=== PATIENT | male | born 1980 | race Caucasian/White ===

== ENCOUNTER 2023-09-07 22:26 | Inpatient (IN) | payer BC ==
[2023-09-07 23:54] LABS: #Eosinphils 0.1 10x3/uL (0.0-0.5); #Monocytes 0.9 10x3/uL (0.0-1.1); #Neutrophils 7.5 10x3/uL (1.5-8.4); %Basophils 0.4 % (0.0-2.0); %Eosinophils 1.1 % (0.0-6.0); %Lymphocytes 8.4 % (18.0-47.0); %Monocytes 9.6 % (0.0-10.0); %Neutrophils 80.1 % (40.0-75.0); Hematocrit 29.5 % (38.8-50.0); Hemoglobin 9.4 g/dL (13.5-17.5); Mean Corpuscular HGB CONC 31.9 g/dL (32.0-36.0); Mean Corpuscular Volume 87.8 fl (81.2-95.1); Mean Platelet Volume 9.7 fl (7.4-10.4); Platelet Count 245 10x3/uL (150-450); RBC Distribution Width 15.9 % (11.5-14.5); Red Blood Cell (RBC) Count 3.36 10x6/uL (4.32-5.72); White Blood Cell (WBC) Count 9.3 10x3/uL (3.5-10.5)
[2023-09-08 00:05] LABS: ALT (SGPT) 11 U/L (8-55); AST (SGOT) 15 U/L (5-34); Albumin 3.1 g/dL (3.5-5.0); Alkaline Phosphatase 75 U/L (40-110); Anion Gap 20 mmol/L (10-20); BUN (Urea Nitrogen) 36 mg/dL (8.9-20.6); Bilirubin, Total 0.5 mg/dL (0.2-1.2); Calc. Creatinine Clearance 0 mL/min (70-130); Calcium 7.7 mg/dL (7.8-10.44); Carbon Dioxide 25 mmol/L (22-29); Chloride 101 mmol/L (98-107); Estimated GFR 14; Globulin 2.9 g/dL (2.4-3.5); Glucose 92 mg/dL (70-105); Lipase 74 U/L (8-78); Potassium 4.5 mmol/L (3.5-5.1); Sodium 141 mmol/L (136-145)
[2023-09-08] MEDS ORDERED: Ipratropium/Albuterol 3 ML NEB ONE (00:05)
[2023-09-08 00:11] LABS: Troponin I 0.157 ng/mL (< 0.028)
[2023-09-08] MEDS ORDERED: cefTRIAXone (ROCEPHIN) 1 GM VIAL ONE (01:16)
[2023-09-08] MEDS ORDERED: Aspirin Chewable 81 MG TAB ONE (01:16)
[2023-09-08] MEDS ORDERED: Aspirin 325 MG TAB ONE (01:20)
[2023-09-08] MEDS ORDERED: Morphine 4 MG/ML VIAL ONE (01:23)
[2023-09-08] MEDS ORDERED: Ondansetron PF 4 MG/2 ML Vial ONE (01:33)
[2023-09-08] MEDS ORDERED: Furosemide 40 MG/4 ML VIAL ONE (01:34)
[2023-09-08] MEDS ORDERED: Nitroglycerin 2% Ointment 1 INCH/1 GM Packet ONE (02:02)
[2023-09-08] MEDS ORDERED: Azithromycin 500 MG VIAL ONE (02:03)
[2023-09-08] MEDS ORDERED: Calcium Carbonate 500 MG ChewTAB PO PRN (03:06)
[2023-09-08] MEDS ORDERED: Senokot S 8.6-50 MG TAB PO PRN (03:06)
[2023-09-08] MEDS ORDERED: Acetaminophen 325 MG TAB PO PRN (03:06)
[2023-09-08] MEDS ORDERED: Vancomycin Diaylsis Sliding Scale (Wt 71-99) FS SCH (04:15)
[2023-09-08] MEDS ORDERED: VANCOMYCIN 1.75 GM/350 ML BAG 1.75 GM in Premix 1 BAG IVPB SCH (04:15)
[2023-09-08] MEDS: Guaifenesin DM 100-10/5 ML UDCUP PO PRN (04:25)
[2023-09-08] MEDS: Cefepime 1 GM in Sodium Chloride 0.9% 100 ML IVPB SCH (04:26)
[2023-09-08] MEDS ORDERED: cloNIDine 0.1 MG TAB PO SCH (09:00)
[2023-09-08 09:07] LABS: SARS-CoV-2 NAA Rapid Test Not Detected (NotDetected)
[2023-09-08] MEDS ORDERED: Carvedilol 6.25 MG TAB PO SCH (09:30)
[2023-09-08] MEDS: Labetalol HCl 100 MG TAB PO SCH ×3 (09:31→21:03)
[2023-09-08] MEDS: Lisinopril 10 MG TAB PO SCH (09:31)
[2023-09-08] MEDS: Benzonatate 100 MG CAP PO SCH ×3 (09:31→21:02)
[2023-09-08] MEDS: Heparin 5,000 UNITS/ML VIAL SC SCH ×3 (09:32→21:04)
[2023-09-08] MEDS: Aspirin 81 mg Enteric Coated Tablet PO SCH (09:32)
[2023-09-08] MEDS: Amlodipine 10 MG TAB PO SCH (09:32)
[2023-09-08] MEDS: Folic Acid/Vit B Comp W-C PO SCH (09:33)
[2023-09-08] MEDS: cloNIDine 0.1 MG TAB PO SCH ×2 (15:00→21:02)
[2023-09-08 16:46] LABS: HBSAg Index 0.19 S/CO (0-0.99); Hep B Surf Ag Non-Reactive S/CO (NonReactive)
[2023-09-08] MEDS: Carvedilol 6.25 MG TAB PO SCH (19:12)
[2023-09-08] MEDS: Acetaminophen/Codeine 30-300mg Tablet PO PRN (21:03)
[2023-09-09 01:06] LABS: Hep B Core Total Ab Non-Reactive (NonReactive); Hep B Core Total Index 0.12 S/CO (0-0.79)
[2023-09-09 01:12] LABS: Hep B Surf AB Reactive (NonReactive); Hep C IgG Ab Reflex HepC Qnt S/CO (NonReactive); Hep C Index 11.45 S/CO (0-0.79)
[2023-09-09] MEDS ORDERED: Labetalol HCl 100 MG TAB PO SCH (01:15)
[2023-09-09] MEDS: Acetaminophen/Codeine 30-300mg Tablet PO PRN ×5 (01:28→23:57)
[2023-09-09 04:41] LABS: #Basophils 0.1 10x3/uL (0.0-0.2); #Eosinphils 0.3 10x3/uL (0.0-0.5); #Monocytes 0.8 10x3/uL (0.0-1.1); #Neutrophils 6.8 10x3/uL (1.5-8.4); %Basophils 0.8 % (0.0-2.0); %Eosinophils 3.1 % (0.0-6.0); %Lymphocytes 10.8 % (18.0-47.0); %Monocytes 8.8 % (0.0-10.0); %Neutrophils 76.1 % (40.0-75.0); Hematocrit 30.8 % (38.8-50.0); Hemoglobin 9.6 g/dL (13.5-17.5); Mean Corpuscular HGB CONC 31.2 g/dL (32.0-36.0); Mean Corpuscular Hemoglobin 27.8 pg (27.0-33.0); Mean Corpuscular Volume 89.3 fl (81.2-95.1); Mean Platelet Volume 9.6 fl (7.4-10.4); Platelet Count 238 10x3/uL (150-450); Red Blood Cell (RBC) Count 3.45 10x6/uL (4.32-5.72); White Blood Cell (WBC) Count 8.9 10x3/uL (3.5-10.5)
[2023-09-09 05:07] LABS: Anion Gap 19 mmol/L (10-20); BUN (Urea Nitrogen) 36 mg/dL (8.9-20.6); Calc. Creatinine Clearance 21 mL/min (70-130); Carbon Dioxide 25 mmol/L (22-29); Chloride 100 mmol/L (98-107); Estimated GFR 13; Glucose 109 mg/dL (70-105); Potassium 4.3 mmol/L (3.5-5.1); Sodium 140 mmol/L (136-145)
[2023-09-09] MEDS: Cefepime 1 GM in Sodium Chloride 0.9% 100 ML IVPB SCH (05:58)
[2023-09-09] MEDS: Carvedilol 6.25 MG TAB PO SCH (06:17)
[2023-09-09 07:41] LABS: Vancomycin, Random 21.4 ug/mL (See Comment)
[2023-09-09] MEDS: Labetalol HCl 100 MG TAB PO SCH ×3 (08:10→20:42)
[2023-09-09] MEDS: cloNIDine 0.1 MG TAB PO SCH ×3 (08:10→20:43)
[2023-09-09] MEDS: Lisinopril 10 MG TAB PO SCH (08:11)
[2023-09-09] MEDS: Heparin 5,000 UNITS/ML VIAL SC SCH ×3 (08:12→20:45)
[2023-09-09] MEDS: Amlodipine 10 MG TAB PO SCH (08:12)
[2023-09-09] MEDS: Benzonatate 100 MG CAP PO SCH ×3 (08:12→20:44)
[2023-09-09] MEDS: Aspirin 81 mg Enteric Coated Tablet PO SCH (08:12)
[2023-09-09] MEDS: Folic Acid/Vit B Comp W-C PO SCH (08:18)
[2023-09-09] MEDS ORDERED: FLU VACC QS2023-24(6MOS UP)/PF 60 MCG/0.5 ML SYRINGE IM ONE (09:00)
[2023-09-09] MEDS ORDERED: Lisinopril 10 MG TAB PO SCH (12:00)
[2023-09-09] MEDS: hydrALAZINE 25 MG TAB PO SCH ×2 (14:00→20:44)
[2023-09-09] MEDS ORDERED: Carvedilol 12.5 MG TAB PO SCH (17:00)
[2023-09-09] MEDS: Ondansetron PF 4 MG/2 ML Vial IVP PRN (18:07)
[2023-09-09 18:49] VITALS: BMI 26.7
[2023-09-09] MEDS: Lisinopril 20 MG TAB PO SCH (20:44)
[2023-09-09] MEDS: Guaifenesin DM 100-10/5 ML UDCUP PO PRN (21:00)
[2023-09-10] MEDS ORDERED: HYDROcodone/Acetaminophen 5/325 mg Tablet PO SCH (01:00)
[2023-09-10] MEDS: Labetalol HCl 100 MG/20 ML VIAL SLOW IVP PRN ×2 (01:54→12:29)
[2023-09-10 04:15] LABS: #Basophils 0.1 10x3/uL (0.0-0.2); #Eosinphils 0.4 10x3/uL (0.0-0.5); #Monocytes 1.1 10x3/uL (0.0-1.1); #Neutrophils 7.5 10x3/uL (1.5-8.4); %Basophils 0.6 % (0.0-2.0); %Eosinophils 3.8 % (0.0-6.0); %Lymphocytes 10.4 % (18.0-47.0); %Monocytes 10.5 % (0.0-10.0); %Neutrophils 74.3 % (40.0-75.0); Hematocrit 30.1 % (38.8-50.0); Hemoglobin 9.7 g/dL (13.5-17.5); Mean Corpuscular HGB CONC 32.2 g/dL (32.0-36.0); Mean Corpuscular Hemoglobin 28.4 pg (27.0-33.0); Mean Corpuscular Volume 88.3 fl (81.2-95.1); Mean Platelet Volume 9.7 fl (7.4-10.4); Platelet Count 246 10x3/uL (150-450); RBC Distribution Width 15.9 % (11.5-14.5); Red Blood Cell (RBC) Count 3.41 10x6/uL (4.32-5.72); White Blood Cell (WBC) Count 10.1 10x3/uL (3.5-10.5)
[2023-09-10 04:38] LABS: Anion Gap 22 mmol/L (10-20); BUN (Urea Nitrogen) 55 mg/dL (8.9-20.6); Calc. Creatinine Clearance 17 mL/min (70-130); Calcium 7.7 mg/dL (7.8-10.44); Carbon Dioxide 22 mmol/L (22-29); Chloride 100 mmol/L (98-107); Estimated GFR 10; Glucose 86 mg/dL (70-105); Potassium 5.5 mmol/L (3.5-5.1); Sodium 138 mmol/L (136-145)
[2023-09-10] MEDS ORDERED: Calcium Gluc 4.6 MEQ/10 ML (100 MG/ML) SLOW IVP SCH (08:00)
[2023-09-10] MEDS ORDERED: LOKELMA 10 GM PACKET PO SCH (08:00)
[2023-09-10 08:28] LABS: Vancomycin, Random 18.3 ug/mL (See Comment)
[2023-09-10] MEDS: Benzonatate 100 MG CAP PO SCH ×3 (08:56→22:40)
[2023-09-10] MEDS: Labetalol HCl 100 MG TAB PO SCH ×3 (08:56→22:40)
[2023-09-10] MEDS: Aspirin 81 mg Enteric Coated Tablet PO SCH (08:56)
[2023-09-10] MEDS: Amlodipine 10 MG TAB PO SCH (08:56)
[2023-09-10] MEDS: hydrALAZINE 25 MG TAB PO SCH ×4 (08:56→22:42)
[2023-09-10] MEDS: Ondansetron PF 4 MG/2 ML Vial IVP PRN ×3 (08:57→23:03)
[2023-09-10] MEDS: Folic Acid/Vit B Comp W-C PO SCH (08:57)
[2023-09-10] MEDS: cloNIDine 0.1 MG TAB PO SCH ×3 (08:57→22:41)
[2023-09-10] MEDS: Heparin 5,000 UNITS/ML VIAL SC SCH ×3 (08:59→22:42)
[2023-09-10] MEDS ORDERED: Lisinopril 20 MG TAB PO SCH (09:00)
[2023-09-10] MEDS: Acetaminophen/Codeine 30-300mg Tablet PO PRN ×3 (10:39→23:02)
[2023-09-10 11:48] LABS: Anion Gap 22 mmol/L (10-20); BUN (Urea Nitrogen) 60 mg/dL (8.9-20.6); Calc. Creatinine Clearance 16 mL/min (70-130); Calcium 7.9 mg/dL (7.8-10.44); Carbon Dioxide 22 mmol/L (22-29); Chloride 100 mmol/L (98-107); Estimated GFR 9; Glucose 108 mg/dL (70-105); Potassium 5.6 mmol/L (3.5-5.1); Sodium 138 mmol/L (136-145)
[2023-09-10] MEDS ORDERED: Vancomycin HCl 750 MG in Sodium Chloride 0.9% 250 ML 250 ML IVPB SCH (17:00)
[2023-09-10] MEDS ORDERED: Cefepime 1 GM in Sodium Chloride 0.9% 100 ML IVPB SCH (17:00)
[2023-09-11] MEDS: Labetalol HCl 100 MG/20 ML VIAL SLOW IVP PRN (02:05)
[2023-09-11 04:46] LABS: #Eosinphils 0.3 10x3/uL (0.0-0.5); #Neutrophils 7.6 10x3/uL (1.5-8.4); %Basophils 0.4 % (0.0-2.0); %Eosinophils 2.7 % (0.0-6.0); %Lymphocytes 9.5 % (18.0-47.0); %Monocytes 9.7 % (0.0-10.0); %Neutrophils 77.2 % (40.0-75.0); Hematocrit 30.1 % (38.8-50.0); Hemoglobin 9.6 g/dL (13.5-17.5); Mean Corpuscular HGB CONC 31.9 g/dL (32.0-36.0); Mean Corpuscular Volume 87.8 fl (81.2-95.1); Mean Platelet Volume 9.9 fl (7.4-10.4); Platelet Count 248 10x3/uL (150-450); RBC Distribution Width 15.9 % (11.5-14.5); Red Blood Cell (RBC) Count 3.43 10x6/uL (4.32-5.72); White Blood Cell (WBC) Count 9.8 10x3/uL (3.5-10.5)
[2023-09-11 04:53] LABS: Anion Gap 19 mmol/L (10-20); BUN (Urea Nitrogen) 45 mg/dL (8.9-20.6); Calc. Creatinine Clearance 20 mL/min (70-130); Calcium 7.8 mg/dL (7.8-10.44); Carbon Dioxide 24 mmol/L (22-29); Chloride 101 mmol/L (98-107); Estimated GFR 12; Glucose 101 mg/dL (70-105); Potassium 4.9 mmol/L (3.5-5.1); Sodium 139 mmol/L (136-145)
[2023-09-11] MEDS: hydrALAZINE 25 MG TAB PO SCH (08:41)
[2023-09-11] MEDS: Labetalol HCl 100 MG TAB PO SCH (08:41)
[2023-09-11] MEDS: Amlodipine 10 MG TAB PO SCH (08:41)
[2023-09-11] MEDS: Aspirin 81 mg Enteric Coated Tablet PO SCH (08:41)
[2023-09-11] MEDS: Benzonatate 100 MG CAP PO SCH (08:41)
[2023-09-11] MEDS: cloNIDine 0.1 MG TAB PO SCH (08:41)
[2023-09-11] MEDS: Acetaminophen/Codeine 30-300mg Tablet PO PRN (08:42)
[2023-09-11] MEDS: Lisinopril 20 MG TAB PO SCH (08:42)
[2023-09-11 08:45] VITALS: BP 167/94; TEMP 98.3
[2023-09-11] MEDS: Heparin 5,000 UNITS/ML VIAL SC SCH (08:45)
[2023-09-11 12:14] LABS: Hep C PCR-Quant HCV Not Detected IU/mL (.)
== END 2023-09-11 09:10 | disposition short-term general hospital (02) | DRG 193 ==
LOC: CSHERS 22:26 → CSHTELE 09-08 02:54
PROVIDERS: ADMIT Student in an Organized Health Care Education/Training Program; ATTEND Hospitalist
DX: J18.9 Pneumonia, unspecified organism (principal); I21.A1 Myocardial infarction type 2; N18.6 End stage renal disease; J90 Pleural effusion, not elsewhere classified; I12.0 Hypertensive chronic kidney disease with stage 5 chronic kidney disease or end stage renal disease; R18.8 Other ascites; D63.1 Anemia in chronic kidney disease; F17.210 Nicotine dependence, cigarettes, uncomplicated; Y95 Nosocomial condition; R77.8 Other specified abnormalities of plasma proteins; F41.9 Anxiety disorder, unspecified; F32.A Depression, unspecified; B19.20 Unspecified viral hepatitis C without hepatic coma; Z91.018 Allergy to other foods; Z99.2 Dependence on renal dialysis; Z98.890 Other specified postprocedural states; Z71.6 Tobacco abuse counseling; Z11.52 Encounter for screening for COVID-19
CPT/HCPCS: 36415; 71045; 71275; 74174; 80048; 80053; 80202; 83690; 83880; 84484; 85025; 86704; 87522; 90935; 93306; 94640; 94660; 94760; G0257; J0456; J0612; J0692; J0696; J1644; J1650; J1940; J2270; J2405; J3370; J3490; J7050; J7611; J7620

== ENCOUNTER 2023-10-26 23:26 | Emergency (ER) | payer BC | END 2023-10-26 23:49 | disposition left against medical advice (07) | LOC: CSHERS 23:26 | DX: Z53.21 Procedure and treatment not carried out due to patient leaving prior to being seen by health care provider (principal) ==

== ENCOUNTER 2023-11-02 14:33 | Emergency (ER) | payer BC, SELFPAY ==
[2023-11-02 15:35] LABS: #Basophils 0.1 10x3/uL (0.0-0.2); #Eosinphils 0.1 10x3/uL (0.0-0.5); #Monocytes 0.6 10x3/uL (0.0-1.1); #Neutrophils 5.4 10x3/uL (1.5-8.4); %Basophils 0.7 % (0.0-2.0); %Eosinophils 0.7 % (0.0-6.0); %Lymphocytes 10.4 % (18.0-47.0); %Monocytes 8.9 % (0.0-10.0); %Neutrophils 79.2 % (40.0-75.0); Hematocrit 29.2 % (38.8-50.0); Hemoglobin 9.1 g/dL (13.5-17.5); Mean Corpuscular HGB CONC 31.2 g/dL (32.0-36.0); Mean Corpuscular Hemoglobin 25.6 pg (27.0-33.0); Mean Corpuscular Volume 82.3 fl (81.2-95.1); Mean Platelet Volume 10.3 fl (7.4-10.4); Platelet Count 235 10x3/uL (150-450); RBC Distribution Width 18.3 % (11.5-14.5); Red Blood Cell (RBC) Count 3.55 10x6/uL (4.32-5.72); White Blood Cell (WBC) Count 6.8 10x3/uL (3.5-10.5)
[2023-11-02 15:50] LABS: ALT (SGPT) 10 U/L (8-55); AST (SGOT) 19 U/L (5-34); Albumin 3.4 g/dL (3.5-5.0); Alkaline Phosphatase 52 U/L (40-110); Anion Gap 26 mmol/L (10-20); BUN (Urea Nitrogen) 118 mg/dL (8.9-20.6); Bilirubin, Total 0.7 mg/dL (0.2-1.2); CK (CPK) 185 U/L (30-200); Calc. Creatinine Clearance 0 mL/min (70-130); Calcium 8.6 mg/dL (7.8-10.44); Carbon Dioxide 22 mmol/L (22-29); Chloride 98 mmol/L (98-107); Estimated GFR 7; Globulin 3.5 g/dL (2.4-3.5); Glucose 102 mg/dL (70-105); Lipase 17 U/L (8-78); Protein, Total 6.9 g/dL (6.0-8.3); Sodium 139 mmol/L (136-145)
[2023-11-02 15:51] LABS: Critical Call Chemistry NUR.JPM@1551
[2023-11-02] MEDS ORDERED: Dicyclomine 20 MG/2 ML VIAL ONE (20:10)
[2023-11-02] MEDS ORDERED: Famotidine/PF 20 mg/2ml Vial ONE (20:11)
== END 2023-11-02 23:44 | disposition home or self-care (01) ==
LOC: CSHERS 14:33
DX: E87.5 Hyperkalemia (principal); I12.0 Hypertensive chronic kidney disease with stage 5 chronic kidney disease or end stage renal disease; N18.6 End stage renal disease; F17.290 Nicotine dependence, other tobacco product, uncomplicated
CPT/HCPCS: 36415; 71045; 80053; 82140; 82550; 83605; 83690; 83735; 83880; 85025; 90935; 93005; 96372; 96374; G0257; S0028

== ENCOUNTER 2023-11-24 12:55 | Emergency (ER) | payer SELFPAY ==
[2023-11-24 14:15] LABS: #Basophils 0.1 10x3/uL (0.0-0.2); #Monocytes 1.1 10x3/uL (0.0-1.1); #Neutrophils 11.6 10x3/uL (1.5-8.4); %Basophils 0.4 % (0.0-2.0); %Lymphocytes 4.7 % (18.0-47.0); %Monocytes 8.4 % (0.0-10.0); Hematocrit 39.4 % (38.8-50.0); Hemoglobin 12.3 g/dL (13.5-17.5); Mean Corpuscular HGB CONC 31.2 g/dL (32.0-36.0); Mean Corpuscular Hemoglobin 24.8 pg (27.0-33.0); Mean Corpuscular Volume 79.4 fl (81.2-95.1); Mean Platelet Volume 10.2 fl (7.4-10.4); Platelet Count 271 10x3/uL (150-450); RBC Distribution Width 17.4 % (11.5-14.5); Red Blood Cell (RBC) Count 4.96 10x6/uL (4.32-5.72); White Blood Cell (WBC) Count 13.5 10x3/uL (3.5-10.5)
[2023-11-24 14:35] LABS: ALT (SGPT) 7 U/L (8-55); AST (SGOT) 17 U/L (5-34); Albumin 3.7 g/dL (3.5-5.0); Alkaline Phosphatase 53 U/L (40-110); Anion Gap 21 mmol/L (10-20); BUN (Urea Nitrogen) 68 mg/dL (8.9-20.6); Bilirubin, Total 0.6 mg/dL (0.2-1.2); Calc. Creatinine Clearance 0 mL/min (70-130); Carbon Dioxide 25 mmol/L (22-29); Chloride 94 mmol/L (98-107); Estimated GFR 10; Glucose 103 mg/dL (70-105); Magnesium 1.9 mg/dL (1.6-2.6); Potassium 5.6 mmol/L (3.5-5.1); Protein, Total 7.7 g/dL (6.0-8.3); Sodium 134 mmol/L (136-145)
[2023-11-24 14:38] LABS: Troponin I 0.134 ng/mL (< 0.028)
== END 2023-11-24 15:04 | disposition home or self-care (01) ==
LOC: CSHERS 12:55
DX: I12.0 Hypertensive chronic kidney disease with stage 5 chronic kidney disease or end stage renal disease (principal); N18.6 End stage renal disease; Z99.2 Dependence on renal dialysis; Z95.1 Presence of aortocoronary bypass graft; Z79.899 Other long term (current) drug therapy
CPT/HCPCS: 36415; 71045; 80053; 83735; 83880; 84484; 85025; 93005

== ENCOUNTER 2023-12-07 18:45 | Observation (INO) | payer BC, SELFPAY ==
[2023-12-07 20:21] LABS: #Monocytes 0.7 10x3/uL (0.0-1.1); #Neutrophils 4.9 10x3/uL (1.5-8.4); %Basophils 0.6 % (0.0-2.0); %Eosinophils 0.3 % (0.0-6.0); %Lymphocytes 13.2 % (18.0-47.0); %Monocytes 10.6 % (0.0-10.0); %Neutrophils 74.8 % (40.0-75.0); Hematocrit 34.7 % (38.8-50.0); Hemoglobin 10.8 g/dL (13.5-17.5); Mean Corpuscular HGB CONC 31.1 g/dL (32.0-36.0); Mean Corpuscular Hemoglobin 24.4 pg (27.0-33.0); Mean Corpuscular Volume 78.3 fl (81.2-95.1); Mean Platelet Volume 10.1 fl (7.4-10.4); Platelet Count 226 10x3/uL (150-450); RBC Distribution Width 16.6 % (11.5-14.5); Red Blood Cell (RBC) Count 4.43 10x6/uL (4.32-5.72); White Blood Cell (WBC) Count 6.5 10x3/uL (3.5-10.5)
[2023-12-07 20:36] LABS: ALT (SGPT) 19 U/L (8-55); AST (SGOT) 42 U/L (5-34); Albumin 3.2 g/dL (3.5-5.0); Alkaline Phosphatase 71 U/L (40-110); Anion Gap 25 mmol/L (10-20); BUN (Urea Nitrogen) 99 mg/dL (8.9-20.6); Bilirubin, Total 0.5 mg/dL (0.2-1.2); Calc. Creatinine Clearance 0 mL/min (70-130); Calcium 7.8 mg/dL (7.8-10.44); Carbon Dioxide 21 mmol/L (22-29); Chloride 99 mmol/L (98-107); Estimated GFR 8; Globulin 3.6 g/dL (2.4-3.5); Glucose 103 mg/dL (70-105); Protein, Total 6.8 g/dL (6.0-8.3); Sodium 138 mmol/L (136-145)
[2023-12-07 20:38] LABS: Potassium 7.2 mmol/L (3.5-5.1)
[2023-12-07] MEDS ORDERED: Heparin 10,000 UNITS/ 10 ML VIAL ONE (22:45)
[2023-12-07] MEDS ORDERED: HYDROcodone/Acetaminophen 10/325 mg Tablet ONE (23:42)
[2023-12-08] MEDS ORDERED: Acetaminophen 325 MG TAB PO PRN (00:25)
[2023-12-08] MEDS ORDERED: Ondansetron PF 4 MG/2 ML Vial IVP PRN (00:25)
[2023-12-08] MEDS ORDERED: Calcium Carbonate 500 MG ChewTAB PO PRN (00:25)
[2023-12-08] MEDS ORDERED: Senokot S 8.6-50 MG TAB PO PRN (00:25)
[2023-12-08] MEDS ORDERED: Guaifenesin DM 100-10/5 ML UDCUP PO PRN (00:25)
[2023-12-08] MEDS ORDERED: hydrALAZINE 20 MG/ML VIAL SLOW IVP PRN (00:28)
[2023-12-08] MEDS ORDERED: hydrALAZINE 20 MG/ML VIAL ONE (02:08)
[2023-12-08] MEDS: METHadone HCl 10 MG TAB PO SCH ×2 (04:33→21:01)
[2023-12-08 04:35] VITALS: BMI 25.7
[2023-12-08] MEDS: cloNIDine 0.1 MG TAB PO SCH ×2 (04:41→09:19)
[2023-12-08 06:11] LABS: Anion Gap 19 mmol/L (10-20); BUN (Urea Nitrogen) 57 mg/dL (8.9-20.6); Calc. Creatinine Clearance 20 mL/min (70-130); Calcium 8.1 mg/dL (7.8-10.44); Carbon Dioxide 25 mmol/L (22-29); Chloride 99 mmol/L (98-107); Estimated GFR 12; Glucose 128 mg/dL (70-105); Potassium 4.9 mmol/L (3.5-5.1); Sodium 138 mmol/L (136-145)
[2023-12-08] MEDS: Nicotine 14 MG PATCH TD SCH (06:23)
[2023-12-08] MEDS: Labetalol HCl 100 MG TAB PO SCH (06:28)
[2023-12-08] MEDS: Folic Acid/Vit B Comp W-C PO SCH (09:19)
[2023-12-08] MEDS: Amlodipine 10 MG TAB PO SCH (09:19)
[2023-12-08] MEDS: Heparin 5,000 UNITS/ML VIAL SC SCH (10:08)
[2023-12-08] MEDS ORDERED: Heparin 10,000 UNITS/ 10 ML VIAL SLOW IVP PRN (13:04)
[2023-12-09 09:36] VITALS: BP 147/87; TEMP 98.3
== END 2023-12-09 09:30 | disposition home or self-care (01) ==
LOC: CSHERS 18:45 → CSHTELE 12-08 00:25
PROVIDERS: ADMIT Student in an Organized Health Care Education/Training Program; ATTEND Internal Medicine
DX: E87.5 Hyperkalemia (principal); I16.0 Hypertensive urgency; I12.0 Hypertensive chronic kidney disease with stage 5 chronic kidney disease or end stage renal disease; N18.6 End stage renal disease; D63.1 Anemia in chronic kidney disease; Z99.2 Dependence on renal dialysis; J96.01 Acute respiratory failure with hypoxia; F17.290 Nicotine dependence, other tobacco product, uncomplicated; E87.70 Fluid overload, unspecified; J90 Pleural effusion, not elsewhere classified; R60.0 Localized edema; F19.10 Other psychoactive substance abuse, uncomplicated; Z91.018 Allergy to other foods; Z79.899 Other long term (current) drug therapy
CPT/HCPCS: 36415; 70450; 71045; 80048; 80053; 82140; 83735; 85025; 90935; 93005; G0257; G0378; J0360; J1644